=== PATIENT | male | born 1975 | race African-American/Black ===

== ENCOUNTER 2017-12-04 09:46 | Inpatient (IN) | payer OTHER ==
[2017-12-04 10:01] VITALS: BMI 25.6
--- NOTE | 2017-12-04 12:06 | HP ---
COWS - Scale Resting Pulse: 1= UT 81-100 Sweatin=Flushed/Facial Moisture Restless Observation: 3= Extraneous Movement Pupil Size: 2= Moderately Dilated Bone or Joint Aches: 2= Severe Diffuse Aches Runny Nose/ Eye Tearin= Runny Nose/Eyes GI Upset > 30mins: 3= Vomiting/Diarrhea Tremor Observation: 2= Slight Tremor Visible Yawning Observation: 1= 1-2x During Session Anxiety or Irritability: 2=Irritable/Anxious Goose Flesh Skin: 0=Smooth Skin COWS Score: 20 CIWA Score - CIWA Score Nausea/Vomitin Muscle Tremors: 3 Anxiety: 3 Agitation: 3 Paroxysmal Sweats: 1-Minimal Palms Moist Orientation: 0-Oriented Tacttile Disturbances: 1-Very Mild Itch/Numbness Auditory Disturbances: 1-Very Mild Visual Disturbances: 0-None Headache: 2-Mild CIWA-Ar Total Score: 17 Admission ROS BHS - HPI Chief Complaint: i need help to stop using heroin,alcohol,cocaine Allergies/Adverse Reactions: Allergies Allergy/AdvReac Type Severity Reaction Status Date / Time No Known Allergies Allergy Verified 12/04/17 11:46 History of Present Illness: this 42 years old male with heroin,alcohol,cocaine dependence,seeking detox, withdrawal symptom,seen at [facility] for right inguinal hernia last night clear to come for detox last treatment in 2017 weight loss hiv positive since 1994 longest sobriety 3 years - Ebola screening Have you traveled outside of the country in the last 21 days: No Have you had contact with anyone from an Ebola affected area: No Have you been sick,other than usual withdrawal symptoms: No Do you have a fever: No - Review of Systems Constitutional: Loss of Appetite, Malaise, Night Sweats, Changes in sleep, Weakness, Unintentional Wgt. Loss EENT: reports: Tearing, Nose Congestion Respiratory: reports: No Symptoms reported Cardiac: reports: Palpitations GI: reports: Nausea, Poor Appetite, Vomiting, Abdominal cramping, Other (right inguinal hernia) : reports: No Symptoms Reported Musculoskeletal: reports: Back Pain, Joint Pain, Muscle Pain, Joint Stiffness Integumentary: reports: Dryness Neuro: reports: Tremors Endocrine: reports: No Symptoms Reported Hematology: reports: No Symptoms Reported Psychiatric: reports: Anxious, other (insomnia) Patient History - Patient Medical History Hx Asthma: Yes (on albuterol inhaler) Hx Chronic Obstructive Pulmonary Disease (COPD): No Hx Cancer: No Hx Cardiac Disorders: No Hx Congestive Heart Failure: No Hx Hypertension: No Hx Hypercholesterolemia: No Hx Pacemaker: No HX Cerebrovascular Accident: No Hx Seizures: No Hx Dementia: No Hx Diabetes: No Hx Gastrointestinal Disorders: No Hx Liver Disease: No Hx Genitourinary Disorders: No Hx Sexually Transmitted Disorders: No Hx Renal Disease (ESRD): No Hx Thyroid Disease: No Hx Human Immunodeficiency Virus (HIV): Yes (since 1994 on meds) Hx Hepatitis C: No Hx Depression: No Hx Suicide Attempt: No Hx Bipolar Disorder: No Hx Schizophrenia: No Other Medical History: insomnia,anxious,no homicidal,no suicidal - Patient Surgical History Past Surgical History: No - PPD History Previous Implant?: Yes Documented Results: Negative w/o proof Implanted On Prior [facility] Admission?: No PPD to be Administered?: Yes - Smoking Cessation Smoking history: Current every day smoker Have you smoked in the past 12 months: Yes Aproximately how many cigarettes per day: 10 Hx Chewing Tobacco Use: No Initiated information on smoking cessation: Yes 'Breaking Loose' booklet given: 12/04/17 - Substance & Tx. History Hx Alcohol Use: Yes Hx Substance Use: Yes Substance Use Type: Alcohol, Cocaine, Heroin Hx Substance Use Treatment: Yes (2017 unknown facility not completed) - Substances Abused Heroin Route: Inhalation Frequency: Daily Amount used: 10 BAGS Age of first use: 22 Date of Last Use: 12/02/17 Alcohol Route: Oral Frequency: Daily Amount used: FIFTH NUPUR Age of first use: 19 Date of Last Use: 12/02/17 Cocaine Route: Smoking Frequency: Daily Amount used: $100 Age of first use: 16 Date of Last Use: 12/02/17 Family Disease History - Family Disease History Family History: Denies Admission Physical Exam BHS - Vital Signs Vital Signs: Vital Signs - 24 hr 12/04/17 09:58 Temperature 97.7 F Pulse Rate 100 H Respiratory 18 Rate Blood Pressure 129/77 - Physical General Appearance: Yes: Moderate Distress, Tremorous, Irritable, Sweating, Anxious HEENTM: Yes: Normal ENT Inspection, ALEX, Pharynx Normal, Nasal Congestion Respiratory: Yes: Lungs Clear, Normal Breath Sounds, No Respiratory Distress Neck: Yes: Within Normal Limits, Supple, Trachea in good position Breast: Yes: Within Normal Limits Cardiology: Yes: Tachycardia Abdominal: Yes: Normal Bowel Sounds, Soft, Other (right inguinal hernia direct) Genitourinary: Yes: Within Normal Limits Back: Yes: Normal Inspection, Muscle Spasm Musculoskeletal: Yes: Back pain, Joint Stiffness, Muscle Pain Extremities: Yes: Normal Range of Motion, Tremors Neurological: Yes: wool cleaner II-XII NML intact, Fully Oriented, Alert, Motor Strength 5/5 Integumentary: Yes: Dry Lymphatic: Yes: Within Normal Limits - Diagnostic (1) Opioid dependence with withdrawal Current Visit: Yes Status: Acute (2) Alcohol dependence with uncomplicated withdrawal Current Visit: Yes Status: Acute (3) Cocaine dependence Current Visit: Yes Status: Acute (4) HIV (human immunodeficiency virus infection) Current Visit: Yes Status: Acute (5) Weight loss Current Visit: Yes Status: Acute (6) Nicotine dependence Current Visit: Yes Status: Acute (7) Direct inguinal hernia Current Visit: Yes Status: Acute (8) Cannabis dependence Current Visit: Yes Status: Acute (9) Insomnia Current Visit: Yes Status: Acute (10) Anxiety Current Visit: Yes Status: Acute Cleared for Admission [facility] - Detox or Rehab [facility] Level of Care: Medically Managed Detox Regimen/Protocol: Methadone/Librium [facility] Breath Alcohol Content Breath Alcohol Content: 0 Urine Drug Screen - Results Drug Screen Negative: No Urine Drug Screen Results: THC-Marijuana, LISA-Cocaine, OPI-Opiates, OXY- Oxycodone
[2017-12-04] MEDS ORDERED: MAGNESIUM HYDROX 2400MG/30ML ORAL SUSPENSION 30 ML CUP PO PRN (12:16)
[2017-12-04] MEDS ORDERED: LOPERAMIDE HCL 2 MG CAPSULE PO PRN (12:16)
[2017-12-04] MEDS ORDERED: MENTHOL/PHENOL 1 EACH UD MM PRN (12:16)
[2017-12-04] MEDS ORDERED: NICOTINE POLACRILEX 2 MG GUM BUC PRN (12:16)
[2017-12-04] MEDS ORDERED: chlordiazePOXIDE HCL 25 MG CAPSULE PO PRN (12:16)
[2017-12-04] MEDS ORDERED: MAGNESIUM CITRATE 300 ML BOTTLE PO PRN (12:16)
[2017-12-04] MEDS ORDERED: hydrOXYzine PAMOATE 25 MG CAPSULE (FP) PO PRN (12:16)
[2017-12-04] MEDS ORDERED: IBUPROFEN 400 MG TABLET (FP) PO PRN (12:16)
[2017-12-04] MEDS ORDERED: MAG HYDROX/AL HYDROX/SIMETH 30 ML UNIT-DOSE CUP PO PRN (12:16)
[2017-12-04] MEDS ORDERED: METHADONE HCL 10 MG TABLET (FOR DETOX USE ONLY) PO ONE ×2 (12:20→23:00)
[2017-12-04] MEDS ORDERED: chlordiazePOXIDE HCL 25 MG CAPSULE PO ONE (12:20)
[2017-12-04] MEDS: NICOTINE 21 MG/24 HOURS TOPICAL PATCH TD SCH (13:11)
--- NOTE | 2017-12-04 16:02 | EKG ---
Test Reason : Blood Pressure : / mmHG Vent. Rate : 083 BPM Atrial Rate : 083 BPM P-R Int : 160 ms QRS Dur : 088 ms QT Int : 376 ms P-R-T Axes : 057 045 038 degrees QTc Int : 441 ms NORMAL SINUS RHYTHM POSSIBLE LEFT ATRIAL ENLARGEMENT LEFT VENTRICULAR HYPERTROPHY ABNORMAL ECG NO PREVIOUS ECGS AVAILABLE Confirmed by JUSTIN MOSELEY MD ([id number]) on 12/04/2017 4:02:40 PM Referred By: Confirmed By:JUSTIN MOSELEY MD
--- NOTE | 2017-12-04 16:13 | CONSULT ---
[facility] Psychiatric Consult - Data Date of interview: 12/04/17 Admission source: [facility] Identifying data: Pt. is a 42 year old male, single, without kids, and unemployed. This is patient's first admission to [facility]. Pt. admitted to for heroin, alcohol, and cocaine dependence. Substance Abuse History: Following information confirmed with Mr. Juárez: - Smoking Cessation. Smoking history: Current every day smoker. Have you smoked in the past 12 months: Yes. Aproximately how many cigarettes per day: 10. Hx Chewing Tobacco Use: No. Initiated information on smoking cessation: Yes. ' Breaking Loose' booklet given: 12/04/17. - Substance & Tx. History. Hx Alcohol Use: Yes. Hx Substance Use: Yes. Substance Use Type: Alcohol, Cocaine , Heroin. Hx Substance Use Treatment: Yes (2017 unknown facility not completed) . - Substances Abused. Heroin. Route: Inhalation. Frequency: Daily. Amount used: 10 BAGS. Age of first use: 22. Date of Last Use: 12/02/17. Alcohol. Route: Oral. Frequency: Daily. Amount used: FIFTH NUPUR. Age of first use: 19. Date of Last Use: 12/02/17. Cocaine. Route: Smoking. Frequency: Daily. Amount used: $100. Age of first use: 16. Date of Last Use: 12/02/17 Medical History: HIV, Asthma Psychiatric History: Pt. connie h/o psychiatric hospitalization and suicide attempts. Report OPC 1 1/2 years ago but has not seen a psychiatrist since. States he has been on the medications zoloft, wellbutrin, and trazodone. Has not taken any psychotrophic medications in over one year. Pt. unable to state dosage. Reports a diagnosis of MDD. Pt. currently denies suicidal and homicidal ideation. Physical/Sexual Abuse/Trauma History: Denies. Mental Status Exam - Mental Status Exam Alert and Oriented to: Time, Place, Person Cognitive Function: Good Patient Appearance: Unkempt Mood: Withdrawn Affect: Flat Patient Behavior: Sedated, Fatigued Speech Pattern: Delayed Voice Loudness: Moderately Soft/Quiet Thought Process: Goal Oriented Thought Disorder: Not Present Hallucinations: Denies Suicidal Ideation: Denies Homicidal Ideation: Denies Insight/Judgement: Poor Sleep: Poorly Appetite: Fair Muscle strength/Tone: Normal Gait/Station: Normal Psychiatric Findings - Problem List ([place] 1, 2,3) (1) Opioid dependence with withdrawal Current Visit: Yes Status: Acute (2) Alcohol dependence with uncomplicated withdrawal Current Visit: Yes Status: Acute (3) Cocaine dependence Current Visit: Yes Status: Acute (4) Insomnia Current Visit: Yes Status: Acute (5) Nicotine dependence Current Visit: Yes Status: Acute (6) MDD (major depressive disorder) Current Visit: Yes Status: Acute Comment: Self reports. - Initial Treatment Plan Initial Treatment Plan: Psychoeducation provided. Detoxification in progress. Trazodone 50mg qhs ordered for insomnia. Benefits and side effects (priapism) discussed. Verbal consent given. Will continue to monitor.
[2017-12-04] MEDS: chlordiazePOXIDE HCL 25 MG CAPSULE PO SCH ×2 (17:33→22:05)
[2017-12-04] MEDS: THIAMINE HCL 100 MG TABLET (FP) PO SCH (22:04)
[2017-12-04] MEDS: RALTEGRAVIR POTASSIUM 400 MG TAB PO SCH (22:05)
[2017-12-04] MEDS: traZODone HCL 50 MG TABLET (FP) PO SCH (22:05)
[2017-12-04 23:17] LABS: URINE APPEARANCE SLCLOUDY; URINE BILIRUBIN NEGATIVE (NEGATIVE); URINE BLOOD NEGATIVE (NEGATIVE); URINE COLOR AMBER; URINE GLUCOSE (UA) NEGATIVE (NEGATIVE); URINE KETONE NEGATIVE (NEGATIVE); URINE NITRITE NEGATIVE (NEGATIVE); URINE UROBILINOGEN 4.0 E.U/dl mg/dL (0.2-1.0)
[2017-12-04 23:18] LABS: URINE LEUK ESTERASE 1+ (NEGATIVE); URINE PROTEIN 1+ (NEGATIVE)
[2017-12-05 00:26] LABS: CALCIUM OXALATE CRYSTALS FEW /hpf (NONE SEEN); EPI CELLS RARE /HPF (FEW); URINE MUCUS MANY
[2017-12-05] MEDS: chlordiazePOXIDE HCL 25 MG CAPSULE PO SCH ×4 (05:39→22:05)
[2017-12-05] MEDS: guaiFENesin/D-METHORPHAN HB 10 ML UNIT-DOSE CUPS PO PRN ×3 (08:37→22:07)
[2017-12-05] MEDS: RITONAVIR 100 MG TABLET PO SCH (09:51)
[2017-12-05] MEDS: ATAZANAVIR SO4 300 MG CAPSULE PO SCH (09:51)
[2017-12-05] MEDS: EMTRICITABINE 200MG/TENOFOVIR 300MG PO SCH (09:51)
[2017-12-05 09:59] LABS: HEMATOCRIT 44.6 % (35.4-49); HEMOGLOBIN 14.4 GM/dL (11.7-16.9); MCH 29.8 pg (25.7-33.7); MCHC 32.3 g/dl (32.0-35.9); MEAN CELL VOLUME 92.2 fl (80-96); MEAN PLT VOLUME 8.6 fl (7.5-11.1); PLATELET COUNT 297 K/MM3 (134-434); RBC 4.84 M/mm3 (4.00-5.60); RDW 14.1 % (11.9-15.9)
[2017-12-05] MEDS ORDERED: METHADONE HCL 10 MG TABLET (FOR DETOX USE ONLY) PO SCH (10:00)
[2017-12-05 10:17] LABS: ALBUMIN 3.2 g/dl (3.4-5.0); ANION GAP 7 (8-16); BLOOD UREA NITROGEN 19 mg/dL (7-18); CALCIUM 8.5 mg/dL (8.5-10.1); CHLORIDE 110 mmol/L (98-107); CO2 26 mmol/L (21-32); CREATININE 0.8 mg/dL (0.7-1.3); GLUCOSE,RANDOM 100 mg/dL (74-106); POTASSIUM 3.9 mmol/L (3.5-5.1); SGOT/AST 14 U/L (15-37); SGPT/ALT 23 U/L (12-78); SODIUM 143 mmol/L (136-145)
[2017-12-05 10:19] LABS: ALK PHOS 71 U/L (45-117); BILIRUBIN,TOTAL 0.7 mg/dL (0.2-1.0); TOT PROT 6.9 g/dl (6.4-8.2)
[2017-12-05] MEDS: PRENATAL VITAMINS W/ FOLIC ACID TABLET (FP) PO SCH (10:19)
[2017-12-05] MEDS: NICOTINE 21 MG/24 HOURS TOPICAL PATCH TD SCH (10:19)
[2017-12-05] MEDS: RALTEGRAVIR POTASSIUM 400 MG TAB PO SCH ×2 (10:19→22:05)
[2017-12-05 11:29] LABS: SICKLE CELL SCREEN NEGATIVE (NEGATIVE)
--- NOTE | 2017-12-05 12:18 | PN ---
S CIWA - CIWA Score Nausea/Vomitin Muscle Tremors: 4-Moderate,w/Arms Extend Anxiety: 4-Mod. Anxious/Guarded Agitation: 4-Moderately Restless Paroxysmal Sweats: 3 Orientation: 0-Oriented Tacttile Disturbances: 1-Very Mild Itch/Numbness Auditory Disturbances: 0-None Visual Disturbances: 0-None Headache: 0-None Present CIWA-Ar Total Score: 19 S COWS - Scale Resting Pulse: 1= DC 81-100 Sweatin= Chills/Flushing Restless Observation: 3= Extraneous Movement Pupil Size: 0= Normal to Room Light Bone or Joint Aches: 2= Severe Diffuse Aches Runny Nose/ Eye Tearin= Runny Nose/Eyes GI Upset > 30mins: 2= Nausea/Diarrhea Tremor Observation of Outstretched Hands: 2= Slight Tremor Visible Yawning Observation: 0= None Anxiety or Irritability: 2=Irritable/Anxious Goose Flesh Skin: 0=Smooth Skin COWS Score: 15 S Progress Note (SOAP) Subjective: Tremor, chills, sweating, nausea, interrupted sleep Objective: 12/05/17 12:14 Last Vital Signs Temp Pulse Resp BP Pulse Ox 96.5 F L 98 H 18 123/85 12/05/17 10:19 12/05/17 10:19 12/05/17 10:19 12/05/17 10:19 Laboratory Tests 12/04/17 12/05/17 12/05/17 21:00 05:45 05:45 WBC 5.0 RBC 4.84 Hgb 14.4 Hct 44.6 MCV 92.2 MCH 29.8 MCHC 32.3 RDW 14.1 Plt Count 297 MPV 8.6 Sickle Cell Screen Negative Sodium 143 Potassium 3.9 Chloride 110 H Carbon Dioxide 26 Anion Gap 7 L BUN 19 H Creatinine 0.8 Creat Clearance w eGFR > 60 Random Glucose 100 Calcium 8.5 Total Bilirubin 0.7 AST 14 L ALT 23 Alkaline Phosphatase 71 Total Protein 6.9 Albumin 3.2 L Urine Color Susie Urine Appearance Slcloudy Urine pH 6.0 Ur Specific [place] 1.034 Urine Protein 1+ H Urine Glucose (UA) Negative Urine Ketones Negative Urine Blood Negative Urine Nitrite Negative Urine Bilirubin Negative Urine Urobilinogen 4.0 e.u/dl Ur Leukocyte Esterase 1+ H Urine WBC (Auto) 17 Urine RBC (Auto) 5 Ur Epithelial Cells Rare Calcium Oxalate Crystal Few Urine Mucus Many Labs noted: abnormal UA Assessment: 12/05/17 12:16 Withdrawal symptoms Noted with abnormal UA Plan: Continue detox Abnormal UA: encouraged to drink lots of water, repeat UA
[2017-12-05] MEDS: ACETAMINOPHEN 325 MG TABLET (FP) PO PRN ×2 (13:30→16:43)
[2017-12-05 14:23] LABS: URINE APPEARANCE SLCLOUDY; URINE BILIRUBIN NEGATIVE (NEGATIVE); URINE BLOOD NEGATIVE (NEGATIVE); URINE COLOR YELLOW; URINE GLUCOSE (UA) NEGATIVE (NEGATIVE); URINE KETONE NEGATIVE (NEGATIVE); URINE NITRITE NEGATIVE (NEGATIVE); URINE PROTEIN NEGATIVE (NEGATIVE); URINE UROBILINOGEN 4.0 E.U/dl mg/dL (0.2-1.0)
[2017-12-05 14:29] LABS: URINE LEUK ESTERASE 2+ (NEGATIVE)
[2017-12-05 14:32] LABS: CALCIUM OXALATE CRYSTALS FEW /hpf (NONE SEEN); URINE MUCUS FEW
[2017-12-05] MEDS: THIAMINE HCL 100 MG TABLET (FP) PO SCH (22:05)
[2017-12-05] MEDS: traZODone HCL 50 MG TABLET (FP) PO SCH (22:05)
[2017-12-06] MEDS: guaiFENesin/D-METHORPHAN HB 10 ML UNIT-DOSE CUPS PO PRN ×2 (05:22→10:22)
[2017-12-06] MEDS: chlordiazePOXIDE HCL 25 MG CAPSULE PO SCH ×2 (05:22→10:17)
[2017-12-06] MEDS: EMTRICITABINE 200MG/TENOFOVIR 300MG PO SCH (07:49)
[2017-12-06] MEDS: ATAZANAVIR SO4 300 MG CAPSULE PO SCH (07:49)
[2017-12-06] MEDS: RITONAVIR 100 MG TABLET PO SCH (07:50)
[2017-12-06] MEDS: METHADONE HCL 5 MG TABLET (FOR DETOX USE ONLY) PO SCH (10:17)
[2017-12-06] MEDS: PRENATAL VITAMINS W/ FOLIC ACID TABLET (FP) PO SCH (10:17)
[2017-12-06] MEDS: NICOTINE 21 MG/24 HOURS TOPICAL PATCH TD SCH (10:17)
[2017-12-06] MEDS: RALTEGRAVIR POTASSIUM 400 MG TAB PO SCH ×2 (10:17→22:33)
--- NOTE | 2017-12-06 13:11 | PN ---
S CIWA - CIWA Score Nausea/Vomitin Muscle Tremors: 2 Anxiety: 2 Agitation: 2 Paroxysmal Sweats: 2 Orientation: 0-Oriented Tacttile Disturbances: 2-Mild Itch/Numbness/Burn Auditory Disturbances: 0-None Visual Disturbances: 1-Very Mild Sensitivity Headache: 2-Mild CIWA-Ar Total Score: 15 BHS COWS - Scale Resting Pulse: 2= UT 101-120 Sweatin= Chills/Flushing Restless Observation: 3= Extraneous Movement Pupil Size: 0= Normal to Room Light Bone or Joint Aches: 2= Severe Diffuse Aches Runny Nose/ Eye Tearin= Runny Nose/Eyes GI Upset > 30mins: 2= Nausea/Diarrhea Tremor Observation of Outstretched Hands: 2= Slight Tremor Visible Yawning Observation: 0= None Anxiety or Irritability: 2=Irritable/Anxious Goose Flesh Skin: 0=Smooth Skin COWS Score: 16 BHS Progress Note (SOAP) Subjective: Shakes, sweats, chills,back pain Objective: 12/06/17 13:09 Vital Signs 12/06/17 12/06/17 06:45 09:24 Temperature 97.4 F L 98.2 F Pulse Rate 102 H 101 H Respiratory 18 20 Rate Blood Pressure 129/74 125/82 Laboratory Last Values WBC 5.0 K/mm3 (4.0-10.0) 12/05/17 05:45 RBC 4.84 M/mm3 (4.00-5.60) 12/05/17 05:45 Hgb 14.4 GM/dL (11.7-16.9) 12/05/17 05:45 Hct 44.6 % (35.4-49) 12/05/17 05:45 MCV 92.2 fl (80-96) 12/05/17 05:45 MCH 29.8 pg (25.7-33.7) 12/05/17 05:45 MCHC 32.3 g/dl (32.0-35.9) 12/05/17 05:45 RDW 14.1 % (11.9-15.9) 12/05/17 05:45 Plt Count 297 K/MM3 (134-434) 12/05/17 05:45 MPV 8.6 fl (7.5-11.1) 12/05/17 05:45 Sickle Cell Screen Negative (NEGATIVE) 12/05/17 05:45 Sodium 143 mmol/L (136-145) 12/05/17 05:45 Potassium 3.9 mmol/L (3.5-5.1) 12/05/17 05:45 Chloride 110 mmol/L (98-107) H 12/05/17 05:45 Carbon Dioxide 26 mmol/L (21-32) 12/05/17 05:45 Anion Gap 7 (8-16) L 12/05/17 05:45 BUN 19 mg/dL (7-18) H 12/05/17 05:45 Creatinine 0.8 mg/dL (0.7-1.3) 12/05/17 05:45 Creat Clearance w eGFR > 60 (>60) 12/05/17 05:45 Random Glucose 100 mg/dL (74-106) 12/05/17 05:45 Calcium 8.5 mg/dL (8.5-10.1) 12/05/17 05:45 Total Bilirubin 0.7 mg/dL (0.2-1.0) 12/05/17 05:45 AST 14 U/L (15-37) L 12/05/17 05:45 ALT 23 U/L (12-78) 12/05/17 05:45 Alkaline Phosphatase 71 U/L (45-117) 12/05/17 05:45 Total Protein 6.9 g/dl (6.4-8.2) 12/05/17 05:45 Albumin 3.2 g/dl (3.4-5.0) L 12/05/17 05:45 Urine Color Yellow 12/05/17 13:25 Urine Appearance Slcloudy 12/05/17 13:25 Urine pH 5.0 (5.0-8.0) 12/05/17 13:25 Ur Specific [place] 1.027 (1.001-1.035) 12/05/17 13:25 Urine Protein Negative (NEGATIVE) 12/05/17 13:25 Urine Glucose (UA) Negative (NEGATIVE) 12/05/17 13:25 Urine Ketones Negative (NEGATIVE) 12/05/17 13:25 Urine Blood Negative (NEGATIVE) 12/05/17 13:25 Urine Nitrite Negative (NEGATIVE) 12/05/17 13:25 Urine Bilirubin Negative (NEGATIVE) 12/05/17 13:25 Urine Urobilinogen 4.0 e.u/dl mg/dL (0.2-1.0) 12/05/17 13:25 Ur Leukocyte Esterase 2+ (NEGATIVE) H 12/05/17 13:25 Urine WBC (Auto) 36 /hpf (3-5) 12/05/17 13:25 Urine RBC (Auto) None /hpf (0-3) 12/05/17 13:25 Ur Epithelial Cells Rare /HPF (FEW) 12/04/17 21:00 Calcium Oxalate Crystal Few /hpf (NONE SEEN) 12/05/17 13:25 Urine Mucus Few 12/05/17 13:25 RPR Titer Nonreactive (NONREACTIVE) 12/05/17 05:45 Labs noted Abnormal UA Assessment: 12/06/17 13:10 Withdrawal sx Abnormal UA, most likely due to colonization Plan: Continue detox Repeat UA pending
[2017-12-06] MEDS: IBUPROFEN 400 MG TABLET (FP) PO PRN (13:55)
[2017-12-06] MEDS: chlordiazePOXIDE 5 MG CAPSULE PO SCH ×2 (17:26→22:33)
[2017-12-06] MEDS: ALBUTEROL SO4 18 GM HFA INHALER IH PRN (21:21)
[2017-12-06] MEDS: P-EPHED 60MG/TRIPROLIDI 2.5MG TABLET PO PRN (21:23)
[2017-12-06] MEDS: traZODone HCL 50 MG TABLET (FP) PO SCH (22:33)
[2017-12-06] MEDS: THIAMINE HCL 100 MG TABLET (FP) PO SCH (22:33)
[2017-12-06] MEDS: ACETAMINOPHEN 325 MG TABLET (FP) PO PRN (22:36)
[2017-12-07] MEDS: chlordiazePOXIDE 5 MG CAPSULE PO SCH ×2 (06:34→10:38)
[2017-12-07] MEDS: EMTRICITABINE 200MG/TENOFOVIR 300MG PO SCH (08:22)
[2017-12-07] MEDS: RITONAVIR 100 MG TABLET PO SCH (08:22)
[2017-12-07] MEDS: ATAZANAVIR SO4 300 MG CAPSULE PO SCH (08:22)
[2017-12-07] MEDS: P-EPHED 60MG/TRIPROLIDI 2.5MG TABLET PO PRN ×2 (09:49→17:43)
[2017-12-07] MEDS: guaiFENesin/D-METHORPHAN HB 10 ML UNIT-DOSE CUPS PO PRN (09:49)
[2017-12-07] MEDS: IBUPROFEN 400 MG TABLET (FP) PO PRN (09:51)
[2017-12-07] MEDS: METHADONE HCL 5 MG TABLET (FOR DETOX USE ONLY) PO SCH (09:51)
[2017-12-07] MEDS: NICOTINE 21 MG/24 HOURS TOPICAL PATCH TD SCH (10:38)
[2017-12-07] MEDS: RALTEGRAVIR POTASSIUM 400 MG TAB PO SCH ×2 (10:38→21:59)
[2017-12-07] MEDS: PRENATAL VITAMINS W/ FOLIC ACID TABLET (FP) PO SCH (10:39)
[2017-12-07] MEDS ORDERED: TRIMETHOBENZAMIDE HCL 200MG/2ML INJ IM PRN (11:14)
[2017-12-07] MEDS ORDERED: cloNIDine HCL 0.1 MG TABLET PO ONE (13:00)
--- NOTE | 2017-12-07 15:00 | PN ---
BHS Progress Note (SOAP) Subjective: Fatigue, Tremors, Vomiting, Sweating, Stomach Cramping, Diarrhea. Objective: PT. A & O X 3, OBSERVED AMBULATING ON UNIT. NO ACUTE DISTRESS. PATIENT DENIES ANY CURRENT UNUSUAL URINARY SYMPTOMS (BURNING, PAIN, FREQUENCY, URGENCY). 12/07/17 14:56 Vital Signs Temperature 98.7 F 12/07/17 14:42 Pulse Rate 109 H 12/07/17 14:42 Respiratory Rate 16 12/07/17 14:42 Blood Pressure 122/81 12/07/17 14:42 O2 Sat by Pulse Oximetry (%) Laboratory Tests 12/04/17 12/05/17 12/05/17 21:00 05:45 05:45 WBC 5.0 RBC 4.84 Hgb 14.4 Hct 44.6 MCV 92.2 MCH 29.8 MCHC 32.3 RDW 14.1 Plt Count 297 MPV 8.6 Sickle Cell Screen Negative Sodium 143 Potassium 3.9 Chloride 110 H Carbon Dioxide 26 Anion Gap 7 L BUN 19 H Creatinine 0.8 Creat Clearance w eGFR > 60 Random Glucose 100 Calcium 8.5 Total Bilirubin 0.7 AST 14 L ALT 23 Alkaline Phosphatase 71 Total Protein 6.9 Albumin 3.2 L Urine Color Susie Urine Appearance Slcloudy Urine pH 6.0 Ur Specific [place] 1.034 Urine Protein 1+ H Urine Glucose (UA) Negative Urine Ketones Negative Urine Blood Negative Urine Nitrite Negative Urine Bilirubin Negative Urine Urobilinogen 4.0 e.u/dl Ur Leukocyte Esterase 1+ H Urine WBC (Auto) 17 Urine RBC (Auto) 5 Ur Epithelial Cells Rare Calcium Oxalate Crystal Few Urine Mucus Many RPR Titer 12/05/17 12/05/17 05:45 13:25 WBC RBC Hgb Hct MCV MCH MCHC RDW Plt Count MPV Sickle Cell Screen Sodium Potassium Chloride Carbon Dioxide Anion Gap BUN Creatinine Creat Clearance w eGFR Random Glucose Calcium Total Bilirubin AST ALT Alkaline Phosphatase Total Protein Albumin Urine Color Yellow Urine Appearance Slcloudy Urine pH 5.0 Ur Specific [place] 1.027 Urine Protein Negative Urine Glucose (UA) Negative Urine Ketones Negative Urine Blood Negative Urine Nitrite Negative Urine Bilirubin Negative Urine Urobilinogen 4.0 e.u/dl Ur Leukocyte Esterase 2+ H Urine WBC (Auto) 36 Urine RBC (Auto) None Ur Epithelial Cells Calcium Oxalate Crystal Few Urine Mucus Few RPR Titer Nonreactive LABS NOTED. 12/07/17 15:31 Assessment: WITHDRAWAL SYMPTOMS. 12/07/17 14:56 Vital Signs Temperature 98.7 F 12/07/17 14:42 Pulse Rate 109 H 12/07/17 14:42 Respiratory Rate 16 12/07/17 14:42 Blood Pressure 122/81 12/07/17 14:42 O2 Sat by Pulse Oximetry (%) Laboratory Tests 12/04/17 12/05/17 12/05/17 21:00 05:45 05:45 WBC 5.0 RBC 4.84 Hgb 14.4 Hct 44.6 MCV 92.2 MCH 29.8 MCHC 32.3 RDW 14.1 Plt Count 297 MPV 8.6 Sickle Cell Screen Negative Sodium 143 Potassium 3.9 Chloride 110 H Carbon Dioxide 26 Anion Gap 7 L BUN 19 H Creatinine 0.8 Creat Clearance w eGFR > 60 Random Glucose 100 Calcium 8.5 Total Bilirubin 0.7 AST 14 L ALT 23 Alkaline Phosphatase 71 Total Protein 6.9 Albumin 3.2 L Urine Color Susie Urine Appearance Slcloudy Urine pH 6.0 Ur Specific [place] 1.034 Urine Protein 1+ H Urine Glucose (UA) Negative Urine Ketones Negative Urine Blood Negative Urine Nitrite Negative Urine Bilirubin Negative Urine Urobilinogen 4.0 e.u/dl Ur Leukocyte Esterase 1+ H Urine WBC (Auto) 17 Urine RBC (Auto) 5 Ur Epithelial Cells Rare Calcium Oxalate Crystal Few Urine Mucus Many RPR Titer 12/05/17 12/05/17 05:45 13:25 WBC RBC Hgb Hct MCV MCH MCHC RDW Plt Count MPV Sickle Cell Screen Sodium Potassium Chloride Carbon Dioxide Anion Gap BUN Creatinine Creat Clearance w eGFR Random Glucose Calcium Total Bilirubin AST ALT Alkaline Phosphatase Total Protein Albumin Urine Color Yellow Urine Appearance Slcloudy Urine pH 5.0 Ur Specific [place] 1.027 Urine Protein Negative Urine Glucose (UA) Negative Urine Ketones Negative Urine Blood Negative Urine Nitrite Negative Urine Bilirubin Negative Urine Urobilinogen 4.0 e.u/dl Ur Leukocyte Esterase 2+ H Urine WBC (Auto) 36 Urine RBC (Auto) None Ur Epithelial Cells Calcium Oxalate Crystal Few Urine Mucus Few RPR Titer Nonreactive LABS NOTED. Plan: CONTINUE DETOX. INCREASE DAILY PO FLUID INTAKE. BACTRIM DS PO BID FOR PROPHYLAXIS FOR POSSIBLE UTI.
[2017-12-07] MEDS: chlordiazePOXIDE HCL 10 MG CAPSULE PO SCH ×2 (17:41→21:59)
[2017-12-07] MEDS: SULFAMETHOXAZOLE/TRIMETHOPRIM 800MG/160MG D.S. TABLET PO SCH ×2 (17:41→21:59)
[2017-12-07] MEDS: traZODone HCL 50 MG TABLET (FP) PO SCH (21:59)
[2017-12-07] MEDS: THIAMINE HCL 100 MG TABLET (FP) PO SCH (21:59)
[2017-12-07] MEDS: ACETAMINOPHEN 325 MG TABLET (FP) PO PRN (22:00)
[2017-12-08] MEDS: chlordiazePOXIDE HCL 10 MG CAPSULE PO SCH ×2 (06:29→10:28)
[2017-12-08] MEDS: P-EPHED 60MG/TRIPROLIDI 2.5MG TABLET PO PRN ×2 (06:31→19:25)
[2017-12-08] MEDS ORDERED: METHADONE HCL 10 MG TABLET (FOR DETOX USE ONLY) PO SCH (10:00)
[2017-12-08] MEDS: ATAZANAVIR SO4 300 MG CAPSULE PO SCH (10:28)
[2017-12-08] MEDS: PRENATAL VITAMINS W/ FOLIC ACID TABLET (FP) PO SCH (10:28)
[2017-12-08] MEDS: RITONAVIR 100 MG TABLET PO SCH (10:28)
[2017-12-08] MEDS: SULFAMETHOXAZOLE/TRIMETHOPRIM 800MG/160MG D.S. TABLET PO SCH ×2 (10:29→22:20)
[2017-12-08] MEDS: EMTRICITABINE 200MG/TENOFOVIR 300MG PO SCH (10:29)
[2017-12-08] MEDS: NICOTINE 21 MG/24 HOURS TOPICAL PATCH TD SCH (10:29)
[2017-12-08] MEDS: RALTEGRAVIR POTASSIUM 400 MG TAB PO SCH ×2 (10:29→22:20)
[2017-12-08] MEDS: IBUPROFEN 400 MG TABLET (FP) PO PRN (11:05)
[2017-12-08] MEDS: THIAMINE HCL 100 MG TABLET (FP) PO SCH (22:20)
[2017-12-08] MEDS: traZODone HCL 50 MG TABLET (FP) PO SCH (22:21)
[2017-12-08] MEDS: ACETAMINOPHEN 325 MG TABLET (FP) PO PRN (22:22)
[2017-12-09] MEDS ORDERED: METHADONE HCL 5 MG TABLET (FOR DETOX USE ONLY) PO SCH (06:00)
[2017-12-09 06:25] VITALS: BP 127/80; PULSE 84; TEMP 97.6
[2017-12-09] MEDS: P-EPHED 60MG/TRIPROLIDI 2.5MG TABLET PO PRN (07:14)
[2017-12-09] MEDS: ATAZANAVIR SO4 300 MG CAPSULE PO SCH (07:15)
[2017-12-09] MEDS: EMTRICITABINE 200MG/TENOFOVIR 300MG PO SCH (07:15)
[2017-12-09] MEDS: RITONAVIR 100 MG TABLET PO SCH (07:16)
[2017-12-09] MEDS: RALTEGRAVIR POTASSIUM 400 MG TAB PO SCH (09:38)
[2017-12-09] MEDS: PRENATAL VITAMINS W/ FOLIC ACID TABLET (FP) PO SCH (09:38)
[2017-12-09] MEDS: SULFAMETHOXAZOLE/TRIMETHOPRIM 800MG/160MG D.S. TABLET PO SCH (09:38)
[2017-12-09] MEDS: ALBUTEROL SO4 18 GM HFA INHALER IH PRN (09:39)
[2017-12-09] MEDS: NICOTINE 21 MG/24 HOURS TOPICAL PATCH TD SCH (09:41)
--- NOTE | 2017-12-09 14:23 | DS ---
[facility] Detox Discharge Summary Admission Date: 12/04/17 Discharge Date: 12/09/17 - History Present History: Alcohol Dependence, Cannabis Dependence, Cocaine Dependence, Opioid Dependence Additional Comments: PATIENT ADVISED TO CONSIDER LOCAL 12-STEP / AA / NA OUTPATIENT PROGRAMS FOR AFTERCARE. PATIENT ADVISED TO FOLLOW-UP WITH [facility] Heather CHEUNG ([facility]) FOR FOLLOW-UP MEDICAL CARE AND FOR FOLLOW-UP HIV MEDICAL ASSESSMENT / TREATMENT. PATIENT LEFT DETOX UNIT IN STABLE MEDICAL CONDITION. Pertinent Past History: HIV, Asthma, Anxiety, Depression, Insomnia, History of inguinal Hernia, Nicotine Dependence, Weight Loss. - Physical Exam Results Vital Signs: Vital Signs Temperature 97.6 F 12/09/17 06:24 Pulse Rate 84 12/09/17 06:24 Respiratory Rate 18 12/09/17 06:24 Blood Pressure 127/80 12/09/17 06:24 O2 Sat by Pulse Oximetry (%) Pertinent Admission Physical Exam Findings: WITHDRAWAL SYMPTOMS. Laboratory Tests 12/04/17 12/05/17 12/05/17 21:00 05:45 05:45 WBC 5.0 RBC 4.84 Hgb 14.4 Hct 44.6 MCV 92.2 MCH 29.8 MCHC 32.3 RDW 14.1 Plt Count 297 MPV 8.6 Sickle Cell Screen Negative Sodium 143 Potassium 3.9 Chloride 110 H Carbon Dioxide 26 Anion Gap 7 L BUN 19 H Creatinine 0.8 Creat Clearance w eGFR > 60 Random Glucose 100 Calcium 8.5 Total Bilirubin 0.7 AST 14 L ALT 23 Alkaline Phosphatase 71 Total Protein 6.9 Albumin 3.2 L Urine Color Susie Urine Appearance Slcloudy Urine pH 6.0 Ur Specific [place] 1.034 Urine Protein 1+ H Urine Glucose (UA) Negative Urine Ketones Negative Urine Blood Negative Urine Nitrite Negative Urine Bilirubin Negative Urine Urobilinogen 4.0 e.u/dl Ur Leukocyte Esterase 1+ H Urine WBC (Auto) 17 Urine RBC (Auto) 5 Ur Epithelial Cells Rare Calcium Oxalate Crystal Few Urine Mucus Many RPR Titer 12/05/17 12/05/17 05:45 13:25 WBC RBC Hgb Hct MCV MCH MCHC RDW Plt Count MPV Sickle Cell Screen Sodium Potassium Chloride Carbon Dioxide Anion Gap BUN Creatinine Creat Clearance w eGFR Random Glucose Calcium Total Bilirubin AST ALT Alkaline Phosphatase Total Protein Albumin Urine Color Yellow Urine Appearance Slcloudy Urine pH 5.0 Ur Specific [place] 1.027 Urine Protein Negative Urine Glucose (UA) Negative Urine Ketones Negative Urine Blood Negative Urine Nitrite Negative Urine Bilirubin Negative Urine Urobilinogen 4.0 e.u/dl Ur Leukocyte Esterase 2+ H Urine WBC (Auto) 36 Urine RBC (Auto) None Ur Epithelial Cells Calcium Oxalate Crystal Few Urine Mucus Few RPR Titer Nonreactive LABS NOTED. - Treatment Hospital Course: Detox Protocol Followed, Detoxed Safely, Responded well, Discharged Condition Good Patient has Accepted a Rehab Referral to: PT ADVISED TO CONSIDER LOCAL 12-STEP/ NA/AA SUPPORT GROUPS FOR AFTERCARE. - Medication Discharge Medications: Ambulatory Orders Atazanavir [Reyataz -] 300 mg PO DAILY 12/04/17 Emtricitabine/Tenofovir [Truvada] 1 tab PO DAILY 12/04/17 Ibuprofen 800 mg PO Q8H PRN 12/04/17 Raltegravir [Isentress -] 400 mg PO BID 12/04/17 Ritonavir [Norvir -] 100 mg PO DAILY 12/04/17 Albuterol Sulfate Inhaler - [Ventolin Hfa Inhaler -] 2 inh PO Q4H PRN #1 inhaler 12/09/17 - Diagnosis (1) Alcohol dependence with uncomplicated withdrawal Status: Acute (2) Direct inguinal hernia Status: Acute (3) Insomnia Status: Acute Qualifiers: Insomnia type: unspecified Qualified Code(s): G47.00 - Insomnia, unspecified (4) Opioid dependence with withdrawal Status: Acute (5) Cannabis dependence Status: Chronic (6) Cocaine dependence Status: Chronic Qualifiers: Substance use status: uncomplicated Qualified Code(s): F14.20 - Cocaine dependence, uncomplicated (7) HIV (human immunodeficiency virus infection) Status: Chronic (8) Nicotine dependence Status: Chronic Qualifiers: Nicotine product type: cigarettes Substance use status: uncomplicated Qualified Code(s): F17.210 - Nicotine dependence, cigarettes, uncomplicated (9) Anxiety Status: Acute (10) Weight loss Status: Acute (11) MDD (major depressive disorder) Status: Acute Qualifiers: Major depression recurrence: recurrent Active/Remission status: remission status unspecified Qualified Code(s): F33.9 - Major depressive disorder, recurrent, unspecified (12) Asthma Status: Chronic Qualifiers: Asthma severity: mild Asthma persistence: intermittent Asthma complication type: uncomplicated Qualified Code(s): J45.20 - Mild intermittent asthma, uncomplicated - AMA Did Patient Leave Against Medical Advice: No
== END 2017-12-09 09:55 | disposition home or self-care (01) | DRG 773 ==
LOC: YASAS 09:46 → Y3N 12:13
PROVIDERS: ADMIT Internal Medicine; ATTEND Internal Medicine
PROC: HZ2ZZZZ Detoxification Services for Substance Abuse Treatment (ICD-10-PCS; principal; 2017-12-04)
DX: F11.23 Opioid dependence with withdrawal (principal); F10.230 Alcohol dependence with withdrawal, uncomplicated; F14.20 Cocaine dependence, uncomplicated; F12.20 Cannabis dependence, uncomplicated; F17.210 Nicotine dependence, cigarettes, uncomplicated; F33.9 Major depressive disorder, recurrent, unspecified; F41.9 Anxiety disorder, unspecified; J45.20 Mild intermittent asthma, uncomplicated; Z21 Asymptomatic human immunodeficiency virus [HIV] infection status; G47.00 Insomnia, unspecified; K40.90 Unilateral inguinal hernia, without obstruction or gangrene, not specified as recurrent; N39.0 Urinary tract infection, site not specified; R00.0 Tachycardia, unspecified; Z87.898 Personal history of other specified conditions
CPT/HCPCS: 36415; 80053; 81003; 81015; 85027; 85660; 86593; 93005; 93010